=== PATIENT | female | born 1965 | race Caucasian/White ===

== ENCOUNTER 2019-10-16 12:11 | Emergency (ER) | payer OTHER ==
[2019-10-16] MEDS ORDERED: Ondansetron PF 4 MG/2 ML Vial ONE ×2 (12:40→13:32)
[2019-10-16 12:46] LABS: Hemoglobin 15.1 g/dL (12.0-16.0); Mean Corpuscular HGB CONC 35.3 g/dL (32.0-36.0); Mean Corpuscular Hemoglobin 33.6 pg (27.0-31.0); Mean Corpuscular Volume 95.3 fL (78.0-98.0); Mean Platelet Volume 8.4 fL (7.4-10.4); Platelet Count 252 thou/uL (130-400); RBC Distribution Width 11.5 % (11.5-14.5); Red Blood Cell (RBC) Count 4.48 mill/uL (4.20-5.40); White Blood Cell (WBC) Count 12.7 thou/uL (4.8-10.8)
[2019-10-16 13:00] LABS: ALT (SGPT) 16 U/L (8-55); AST (SGOT) 28 U/L (5-34); Albumin 4.7 g/dL (3.5-5.0); Alkaline Phosphatase 64 U/L (40-110); Anion Gap 18 mmol/L (10-20); BUN (Urea Nitrogen) 13 mg/dL (9.8-20.1); Bilirubin, Total 0.8 mg/dL (0.2-1.2); Calc. Creatinine Clearance 0 mL/min (70-130); Calcium 9.2 mg/dL (7.8-10.44); Carbon Dioxide 21 mmol/L (22-29); Chloride 102 mmol/L (98-107); Estimated GFR-MDRD 70; Globulin 2.9 g/dL (2.4-3.5); Glucose 126 mg/dL (70-105); Lipase 27 U/L (8-78); Potassium 4.9 mmol/L (3.5-5.1); Protein, Total 7.6 g/dL (6.0-8.3); Sodium 136 mmol/L (136-145)
[2019-10-16 13:14] LABS: Band 30 % (5-11); Lymphocytes 6 % (21-51); MDiff Complete? YES; Monocytes 2 % (0-10); Neutrophil 61 % (42-75); Platelet Morphology Comment Appears Adequate; Polychromasia SLIGHT = 2-3 cells (100X) (0-2/hpf); Reactive Lymphocytes 1 % (0-10)
--- NOTE | 2019-10-16 13:23 | ULT ---
Exam: Right upper quadrant ultrasound: HISTORY: Abdominal pain with nausea and vomiting. COMPARISON: None FINDINGS: Liver: Within normal limits Gallbladder: There are 2 small nonmobile echogenic foci seen along the gallbladder wall largest measu ring approximately 4 mm likely due to small gallbladder polyps. No gallbladder calculus is seen. No gallbladder wall thickening or pericholecystic fluid is identified. Common bile duct: The common duct is normal in caliber measuring 0.3 cm in diameter. Pancreas: Limited visualized portions of the pancreas demonstrate a normal sonographic appearance. Right kidney: Right kidney demonstrates a normal sonographic appearance. The right kidney measures 1 0 cm in length. IVC: The visualized IVC demonstrates a normal sonographic appearance. IMPRESSION: 1. Findings likely attributable to 2 small gallbladder polyps largest measuring 4 mm. 2. No gallbladder calculus is seen, and the common duct is normal in caliber.
[2019-10-16 13:27] LABS: Troponin I Less than 0.010 ng/mL (< 0.028)
[2019-10-16] MEDS ORDERED: Fentanyl 100 MCG/2 ML VIAL ONE (13:32)
[2019-10-16] MEDS ORDERED: Iopamidol 370 76% 100 ML VIAL ONE (13:43)
[2019-10-16 14:18] LABS: Bilirubin Negative (Negative); Blood, Urine Negative (Negative); Clarity Clear (Clear); Glucose, Urine (Dipstick) Normal (Negative); Leukocyte Negative Leu/uL (Negative); Nitrite Negative (Negative); Protein, Urine (Dipstick) Negative (Neg-Trace); Urobilinogen Normal mg/dL (Less than 2)
--- NOTE | 2019-10-16 14:27 | CT ---
CT ABDOMEN AND PELVIS WITH CONTRAST: COMPARISON: None. HISTORY: Severe abdominal pain. TECHNIQUE: Multiple contiguous axial images were obtained in a CT of the abdomen and pelvis with contrast. Sagi ttal and coronal reformats were performed. FINDINGS: The liver, gallbladder, kidneys, adrenal glands, spleen, and pancreas are unremarkable.. No free air , free fluid, or stranding changes are seen in the abdomen or pelvis. The uterus has been removed. There is a tubular low-density structure in the right aspect of the pel vis which could represent a slightly enlarged residual right fallopian tube versus a loop of predomin antly decompressed small bowel containing fluid. The large and small bowel are unremarkable. The ap pendix is not definitely seen. No abdominal or pelvic lymphadenopathy are seen. The osseous structures, visualized inferior thorax, and abdominal wall soft tissues are unremarkable. IMPRESSION: No evidence of acute intraabdominal/pelvic abnormality. POS: [facility]
[2019-10-16] MEDS ORDERED: Ketorolac Tromethamine 30 MG/ML VIAL ONE (14:48)
== END 2019-10-16 15:21 | disposition home or self-care (01) ==
LOC: ERS 12:11
DX: R10.13 Epigastric pain (principal); R10.11 Right upper quadrant pain; R11.2 Nausea with vomiting, unspecified; R19.7 Diarrhea, unspecified
CPT/HCPCS: 74177; 76705; 80053; 81003; 83690; 84484; 85025; 93005; 96361; 96372; 96374; 96375; 96376; J0500; J1885; J2405; J3010; Q9967

== ENCOUNTER 2019-10-17 03:55 | Emergency (ER) | payer OTHER ==
[2019-10-17] MEDS ORDERED: Promethazine HCl 25 MG/ML VIAL ONE (04:11)
[2019-10-17] MEDS ORDERED: Sucralfate 1 GM TAB PO SCH (04:45)
[2019-10-17] MEDS ORDERED: Sucralfate 1 GM/10 ML UDCUP ONE (04:51)
== END 2019-10-17 05:50 | disposition home or self-care (01) ==
LOC: ERS 03:55
DX: R10.13 Epigastric pain (principal); R11.2 Nausea with vomiting, unspecified
CPT/HCPCS: 96372; 99283; J2550

== ENCOUNTER 2019-10-31 09:11 | Inpatient (IN) | payer OTHER ==
[2019-10-31] MEDS ORDERED: Morphine 4 MG/ML VIAL ONE ×2 (09:25→10:26)
[2019-10-31] MEDS ORDERED: Ondansetron PF 4 MG/2 ML Vial ONE ×2 (09:26→09:41)
[2019-10-31 09:34] LABS: #Basophils 0.1 thou/uL (0.0-0.2); #Eosinphils 0.1 thou/uL (0.0-0.7); #Lymphocytes 1.3 thou/uL (1.20-3.40); #Monocytes 0.5 thou/uL (0.11-0.59); #Neutrophils 12.6 thou/uL (1.40-6.50); %Basophils 0.7 % (0.0-1.0); %Eosinophils 0.4 % (0.0-10.0); %Lymphocytes 9.1 % (21.0-51.0); %Monocytes 3.6 % (0.0-10.0); %Neutrophils 86.3 % (42.0-75.0); Hemoglobin 16.9 g/dL (12.0-16.0); Mean Corpuscular HGB CONC 34.1 g/dL (32.0-36.0); Mean Corpuscular Hemoglobin 32.8 pg (27.0-31.0); Mean Corpuscular Volume 96.2 fL (78.0-98.0); Mean Platelet Volume 6.6 fL (7.4-10.4); Platelet Count 505 thou/uL (130-400); RBC Distribution Width 11.2 % (11.5-14.5); Red Blood Cell (RBC) Count 5.14 mill/uL (4.20-5.40); White Blood Cell (WBC) Count 14.6 thou/uL (4.8-10.8)
[2019-10-31 09:47] LABS: ALT (SGPT) 31 U/L (8-55); AST (SGOT) 19 U/L (5-34); Albumin 4.4 g/dL (3.5-5.0); Alkaline Phosphatase 88 U/L (40-110); Anion Gap 16 mmol/L (10-20); BUN (Urea Nitrogen) 6 mg/dL (9.8-20.1); Bilirubin, Total 0.3 mg/dL (0.2-1.2); Calc. Creatinine Clearance 0 mL/min (70-130); Calcium 9.9 mg/dL (7.8-10.44); Carbon Dioxide 29 mmol/L (22-29); Chloride 100 mmol/L (98-107); Estimated GFR-MDRD 79; Globulin 3.5 g/dL (2.4-3.5); Glucose 119 mg/dL (70-105); Lipase 40 U/L (8-78); Potassium 4.7 mmol/L (3.5-5.1); Protein, Total 7.9 g/dL (6.0-8.3); Sodium 140 mmol/L (136-145)
--- NOTE | 2019-10-31 10:15 | RAD ---
Portable frontal chest radiograph: 10/31/2019 COMPARISON: None HISTORY: Right upper quadrant pain FINDINGS: No focal consolidation or alveolar edema. Heart and mediastinal contours appear within norm al limits. No pneumothorax or pleural fluid. Mild increased linear density in the medial right lung base suggests probable vascular structures. Impression: No focal consolidation or alveolar edema.
[2019-10-31] MEDS ORDERED: Promethazine HCl 25 MG/ML VIAL ONE (10:26)
--- NOTE | 2019-10-31 10:49 | ULT ---
Right upper quadrant ultrasound: 10/31/2019 COMPARISON: None HISTORY: Right upper quadrant pain TECHNIQUE: Multiplanar grayscale sonographic imaging of the right upper quadrant. FINDINGS: Partially imaged pancreas appears unremarkable. No focal liver lesion or intrahepatic bilia ry dilatation. The personal development coach reports a negative Richards's sign. No gallbladder wall thickening or pericholecystic f luid. No gallstones are noted. The common bile duct is normal in size, measuring 2 mm. Incidental note is made of subcentimeter gallbladder polyps measuring up to 6 mm. Right kidney measures 9 cm in craniocaudal dimension and demonstrates no hydronephrosis, stone, or ma ss. IMPRESSION: Unremarkable right upper quadrant ultrasound.
[2019-10-31] MEDS ORDERED: GoLYTELY 4,000 ml Bottle PO SCH (13:00)
[2019-10-31 13:06] LABS: Clarity Turbid (Clear); Leukocyte Negative Leu/uL (Negative); Nitrite Negative (Negative); Protein, Urine (Dipstick) Negative (Neg-Trace)
[2019-10-31 13:07] LABS: Bacteria/HPF 1+ HPF (None Seen); Bilirubin Negative (Negative); Blood, Urine Negative (Negative); Calcium Oxalate Crystals 3+ HPF (None Seen); Glucose, Urine (Dipstick) Normal (Negative); RBC/HPF 21-50 HPF (0-3); Squamous Epithelial 0-3 HPF (0-3); Urobilinogen Normal mg/dL (Less than 2)
--- NOTE | 2019-10-31 13:11 | PDOC.FPRHP ---
- History of Present Illness Chief Complaint: abdominal pain History of Present Illness: 54yo F previously healthy presents with 16 day hx of severe abdominal pain with associated nause/vomiting/diarrhea. Pain is achy and epigastric and severe with no radiation. It is palliated by light pressure and laying in position. No hematemesis/melena/hematochezia. She was hospitalized earlier this week at [facility] and had extensive workup done then (including stool studies and imaging) just short of endoscopy. CT reportedly showed diffuse enteritis. ED Course: phenergan, zofran, morphine 8mg, 2L NS - Allergies/Adverse Reactions Allergies Allergy/AdvReac Type Severity Reaction Status Date / Time No Known Allergies Allergy Unverified 10/31/19 13:31 - Home Medications Medication Instructions Recorded Confirmed Type Ibuprofen [Motrin] 600 mg PO Q8H PRN #60 tab 11/07/19 Rx - History PMHx: exercise induced bronchospasm PSHx: hysterectomy, neck lift, L breast fibroid and L breast lift. FHx: No fam hx of colon cancer, non contributory Social: social EtOH, denies tobacco/drugs - Review of Systems General: denies: fever/chills, fatigue Eyes: denies: eye pain, vision changes ENT: denies: nasal congestion, rhinorrhea Respiratory: denies: cough, congestion, shortness of breath Cardiovascular: denies: chest pain, palpitation Gastrointestinal: reports: nausea, vomiting, diarrhea, abdominal pain. denies: constipation, GI bleeding Skin: denies: rashes, lesions Musculoskeletal: denies: pain, tenderness Neurological: denies: syncope, seizure Psychological: denies: anxiety, depression - Vital signs BP: 149/111, Pulse: 131, Temp: 97.8 (Oral), Pain: 8, O2 sat: 98 on (Room Air), Time: 10/31/2019 09:12. resp 15 weight 56kg - Physical Exam Constitutional: awake, alert and oriented -Constitutional: mild distress HEENT: EOMI, grossly normal vision, grossly normal hearing Neck: supple, trachea midline Chest: no-tender to palpation Heart: RRR, normal S1/S2 Lungs: CTAB, no respiratory distress, good air movement Abdomen: soft, other (epigastric tenderness. neg tan/mcburney/rovsing/heel tap) Musculoskeletal: normal structure, normal tone Neurological: no focal deficit, normal sensation Skin: no rash/lesions, good turgor Heme/Lymphatic: no unusual bruising or bleeding, no purpura FMR H&P: Results - Labs Result Diagrams: 11/07/19 11:59 11/06/19 05:40 Lab results: WBC 14.6 thou/uL (4.8-10.8) H 10/31/19 09:24 Hgb 16.9 g/dL (12.0-16.0) H 10/31/19 09:24 Hct 49.5 % (36.0-47.0) H 10/31/19 09:24 MCV 96.2 fL (78.0-98.0) 10/31/19 09:24 Plt Count 505 thou/uL (130-400) H 10/31/19 09:24 Neutrophils % 86.3 % (42.0-75.0) H 10/31/19 09:24 Sodium 140 mmol/L (136-145) 10/31/19 09:24 Potassium 4.7 mmol/L (3.5-5.1) 10/31/19 09:24 Chloride 100 mmol/L (98-107) 10/31/19 09:24 Carbon Dioxide 29 mmol/L (22-29) 10/31/19 09:24 BUN 6 mg/dL (9.8-20.1) L 10/31/19 09:24 Creatinine 0.76 mg/dL (0.6-1.1) 10/31/19 09:24 Glucose 119 mg/dL (70-105) H 10/31/19 09:24 Lactic Acid 1.4 mmol/L (0.5-2.2) 10/31/19 10:16 Calcium 9.9 mg/dL (7.8-10.44) 10/31/19 09:24 Total Bilirubin 0.3 mg/dL (0.2-1.2) 10/31/19 09:24 AST 19 U/L (5-34) 10/31/19 09:24 ALT 31 U/L (8-55) 10/31/19 09:24 Alkaline Phosphatase 88 U/L (40-110) 10/31/19 09:24 Serum Total Protein 7.9 g/dL (6.0-8.3) 10/31/19 09:24 Albumin 4.4 g/dL (3.5-5.0) 10/31/19 09:24 Lipase 40 U/L (8-78) 10/31/19 09:24 FMR H&P: A/P - Problem List (1) Intractable abdominal pain Status: Acute Code(s): R10.9 - UNSPECIFIED ABDOMINAL PAIN (2) Hypovolemia Status: Acute Code(s): E86.1 - HYPOVOLEMIA - Plan Intractible abdominal pain A- unclear etiology at this time. extensive workup outpt and outside hospital unremarkable. CT previously suggest diffuse enteritis, RUQ US here shows gall bladder polpys. GI consulted from ED (recs appreciated) P- admit to medical obs -protonix BID -plan for possible endoscopy tomorrow -morphine prn for pain -consider HIDA scan in future -f/u GI recs COVID-19 r/o A- pt meets testing criteria for testing as she is admitted for diarrhea requiring hospitalization. low suspicion for infection P- Covid19 testing -droplet precautions -will hold off on additional "covid" labwork for the time being hypovolemia A- pt is s/p 2 L IVF in ER and appears euvolemic on exam now P- Will keep on mIVF until she has improved PO intake CODE: FULL IVF: LR 75/hr PPx: SCDs (hold lovenox for possible scope), protonix PCP: Dr. Catalan FMR H&P: Upper Level - Plan Date/Time: 10/31/19 1210 I, [], have evaluated this patient and agree with findings/plan as outlined by recruiting internship resident. Pertinent changes/additions are listed here. Addendum - Attending - Attending Attestation Date/Time: 11/22/19 1310 I personally evaluated the patient and discussed the management with Dr. Perez on 10/31/19. I agree with the History, Examination, Assessment and Plan documented above with any addition or exceptions noted below. 54 y.o. F with h/o Hyst with 16 days N/V/D/epigastric pain. Prior w/u suggested nonspecific enteritis. Symptoms are possible COVID so made PUI. Continue IVF resuscitation, limit p.o. intake. Abx's and GI consultation.
--- NOTE | 2019-10-31 13:33 | CON ---
DATE OF CONSULTATION: 10/31/2019 REASON FOR CONSULTATION: Ongoing abdominal pain, vomiting, enteritis on recent CT. HISTORY OF PRESENT ILLNESS: Veronika Roberts is a 54-year-old woman, whom I met a week and a half ago in hospital consultation at the [facility]. See my consult note from 10/21/2019, for further details. Briefly, she has no significant past medical history. No chronic gastrointestinal symptoms until recently. She has never undergone colonoscopy. Her grandmother had colon cancer in her 90s. Ms. Roberts was doing well until the last week of September when she had a fairly acute onset of loss of appetite and nausea. She started having multiple episodes of bilious emesis and severe epigastric pain. Over the next few days, the vomiting persisted, and she started having more generalized abdominal pain and then pain into the bilateral lower quadrants. The vomiting improved, but then she started having watery diarrhea for several days and was having bowel movements every 10 minutes or so. There was no blood in the stool or in the emesis. She was admitted to the hospital, where I evaluated her. She was hyponatremic with sodium down to 128. A CT of the abdomen and pelvis demonstrated diffuse small bowel enteritis as well as some diffuse colon thickening, inflammation, particularly severe in the area of the ileum. The CT was otherwise negative. She was started on Levaquin and Flagyl empirically. Stool studies were sent and were all negative including C. difficile, Campylobacter antigen, and Shiga toxin. The patient reports she had further stool studies, both before and after that admission, which were all negative including O and P. By the time I saw her, she felt her diarrhea was improving and abdominal pain improving a little bit as well. My clinical impression at that time was that this likely represented an acute infectious gastroenteritis. She was able to be discharged the following day. She reports that over the past week and half since then, symptoms have not appreciably improved and now over the past couple of days have significantly worsened. She is still having significant pain, which is primarily in the epigastrium, but really generalized still. She had return of nausea yesterday and vomiting this morning. Her bowel movements have remained loose and frequent, about 5 or 6 times per day, still nonbloody. She has not had any fever or any cough with this. She has lost about 7 pounds over the past 3 weeks. She has felt drained of energy and has essentially been in bed for the past week trying to hold off the abdominal pain symptoms. Upon presentation here, chest x-ray and abdominal ultrasound are unremarkable. She does have a leukocytosis with WBC 14.6, hemoglobin 16.9, platelets 505, appearing hemoconcentrated, but LFTs and lactic acid are normal. REVIEW OF SYSTEMS: Full review of systems including constitutional, head, eyes, ears, nose, throat, GI, , cardiovascular, respiratory, musculoskeletal, and neurologic systems is negative except as noted in the HPI. PAST MEDICAL HISTORY: Nothing significant. ALLERGIES: NO KNOWN DRUG ALLERGIES. OUTPATIENT MEDICATIONS: 1. Probiotic. 2. Fish oil. SOCIAL HISTORY: Alcohol use is rare. No smoking or drug use. FAMILY HISTORY: Her grandmother had colon cancer, but it was in her 90s. There is no known family history of inflammatory bowel disease. PHYSICAL EXAMINATION: GENERAL: A 54-year-old woman, lying in bed, in mild distress from abdominal pain. MENTAL: She is alert and fully oriented. Pleasant and conversational. She can give details about her prior and recent history. SKIN: No jaundice. No rashes were palpable. EYES: No scleral icterus. Extraocular movements are intact. ENT: Mucous membranes are moist. No oral lesions. LYMPH: No submandibular or supraclavicular lymphadenopathy. Thyroid nontender to palpation. HEART: Regular rate and rhythm. LUNGS: Clear to auscultation bilaterally. ABDOMEN: Nondistended. Bowel sounds are present. She is quite tender to palpation in the epigastrium, but also in the periumbilical area. There is no guarding or rebound tenderness. EXTREMITIES: No peripheral edema. VESSELS: Radial pulses 2+ bilaterally. NEUROLOGIC: Cranial nerves 2 through 12 intact bilaterally. No focal deficits. LABORATORY STUDIES: WBC 14.6, hemoglobin 16.9, platelets 505. Sodium 140, potassium 4.7, BUN 6, creatinine 0.76, lactic acid 1.4, calcium 9.9, lipase 40. Troponin, negative. LFTs all normal with total bilirubin 0.3, alkaline phosphatase 88, AST 19, ALT 31, albumin 4.4. IMAGING STUDIES: Chest x-ray shows no focal consolidation or alveolar edema. Abdominal ultrasound is normal exam, normal appearing liver, normal common bile duct of 2 mm. There incidentally demonstrated some gallbladder polyps measuring up to [address] of the abdomen and pelvis from the outside facility on 10/20/2019, had demonstrated diffuse enterocolitis with thickening, particularly in the ileum, otherwise negative study. ASSESSMENT AND PLAN: 1. Generalized abdominal pain. 2. Chronic diarrhea, now for 3 weeks, with multiple negative stool studies for pathogens. 3. Nausea and vomiting, recurrent. 4. Enterocolitis, unknown etiology, demonstrated on recent CT scan on 10/20/2019. Her symptoms have now been persistent for the past 3 weeks now, more consistent with onset of a chronic diarrhea and abdominal pain. Especially given all the negative stool studies and the duration of symptoms, this makes an infectious gastroenteritis a bit less likely. It raises the concern for possible onset of inflammatory bowel disease, also need to consider other possibilities such as peptic ulcer disease. The next step in evaluation would be diagnostic esophagogastroduodenoscopy and colonoscopy. The patient is willing to try the bowel preparation this evening, so we will plan for that, plan for diagnostic esophagogastroduodenoscopy and colonoscopy tomorrow. That being the case, I would hold off on any empiric steroids for now. We would start her on Protonix 40 mg b.i.d. in the meantime. Otherwise, supportive care as per the primary service. Dr. Sher is covering for GI over the weekend. Please call back anytime with questions or concerns. Job ID: [id number]
[2019-10-31] MEDS ORDERED: Lactated Ringer's 1,000 ML IV SCH (14:25)
[2019-10-31] MEDS ORDERED: Acetaminophen 325 MG TAB PO PRN (14:25)
[2019-10-31] MEDS ORDERED: Acetaminophen 650 MG Suppository PR PRN (14:39)
[2019-10-31] MEDS ORDERED: Promethazine HCl 12.5 MG SUPP PR PRN (14:39)
[2019-10-31] MEDS ORDERED: Pantoprazole 40 MG VIAL IVP SCH (14:39)
[2019-10-31] MEDS ORDERED: Ondansetron ODT 4 MG TAB PO PRN (14:39)
[2019-10-31] MEDS: Lactated Ringer's 1,000 ML IV SCH (15:17)
[2019-10-31] MEDS: Ondansetron PF 4 MG/2 ML Vial IVP PRN (15:19)
[2019-10-31] MEDS: Morphine 4 MG/ML VIAL SLOW IVP PRN (15:20)
[2019-10-31] MEDS ORDERED: Ondansetron ODT 4 MG TAB SL PRN (15:40)
[2019-10-31] MEDS ORDERED: Ondansetron PF 4 MG/2 ML Vial IVP PRN (15:40)
[2019-10-31 17:23] VITALS: BMI 22.8
[2019-10-31] MEDS: Pantoprazole 40 MG VIAL IVP SCH (22:41)
[2019-11-01] MEDS: Lactated Ringer's 1,000 ML IV SCH ×3 (04:06→23:20)
[2019-11-01 06:30] LABS: #Basophils 0.1 thou/uL (0.0-0.2); #Eosinphils 0.2 thou/uL (0.0-0.7); #Lymphocytes 1.9 thou/uL (1.20-3.40); #Monocytes 0.6 thou/uL (0.11-0.59); #Neutrophils 3.7 thou/uL (1.40-6.50); %Basophils 0.8 % (0.0-1.0); %Eosinophils 2.5 % (0.0-10.0); %Lymphocytes 29.8 % (21.0-51.0); %Monocytes 8.8 % (0.0-10.0); %Neutrophils 58.1 % (42.0-75.0); Hemoglobin 13.7 g/dL (12.0-16.0); Mean Corpuscular HGB CONC 34.5 g/dL (32.0-36.0); Mean Corpuscular Hemoglobin 33.3 pg (27.0-31.0); Mean Corpuscular Volume 96.3 fL (78.0-98.0); Mean Platelet Volume 6.7 fL (7.4-10.4); Platelet Count 386 thou/uL (130-400); Red Blood Cell (RBC) Count 4.13 mill/uL (4.20-5.40); White Blood Cell (WBC) Count 6.4 thou/uL (4.8-10.8)
[2019-11-01 07:03] LABS: ALT (SGPT) 20 U/L (8-55); AST (SGOT) 16 U/L (5-34); Albumin 3.3 g/dL (3.5-5.0); Alkaline Phosphatase 63 U/L (40-110); Anion Gap 12 mmol/L (10-20); BUN (Urea Nitrogen) 4 mg/dL (9.8-20.1); Bilirubin, Total 0.5 mg/dL (0.2-1.2); Calc. Creatinine Clearance 89 mL/min (70-130); Calcium 8.6 mg/dL (7.8-10.44); Carbon Dioxide 28 mmol/L (22-29); Chloride 103 mmol/L (98-107); Estimated GFR-MDRD Greater than 90; Globulin 2.4 g/dL (2.4-3.5); Glucose 81 mg/dL (70-105); Potassium 3.6 mmol/L (3.5-5.1); Protein, Total 5.7 g/dL (6.0-8.3); Sodium 139 mmol/L (136-145)
[2019-11-01] MEDS ORDERED: PROPOFOL 0 ML ONE (07:22)
[2019-11-01] MEDS ORDERED: Ketamine 50 MG/ML (10ML VIAL) ONE (07:22)
[2019-11-01] MEDS: Pantoprazole 40 MG VIAL IVP SCH ×2 (08:46→20:40)
--- NOTE | 2019-11-01 09:47 | PDOC.FM ---
- Subjective Subjective: Pt feeling well, abd pain is controlled with morphine, no respiratory Sx. No new complaints - Objective Vital Signs & Weight: Vital Signs (12 hours) Temp Pulse Resp BP BP Pulse Ox 11/01/19 03:30 98.1 F 79 16 116/77 95 10/31/19 21:45 98.7 F 85 18 124/81 96 Weight Weight 56.699 kg I&O: 10/31/19 11/01/19 11/02/19 06:59 06:59 06:59 Intake Total 240 Balance 240 Result Diagrams: 11/07/19 11:59 11/06/19 05:40 Phys Exam - Physical Examination Constitutional: NAD HEENT: moist MMs, sclera anicteric Neck: no JVD, supple Respiratory: no wheezing, clear to auscultation bilateral Cardiovascular: RRR, no significant murmur Gastrointestinal: soft, no distention Musculoskeletal: no edema, pulses present Neurological: normal sensation, moves all 4 limbs Psychiatric: normal affect, A&O x 3 Skin: no rash, normal turgor Dx/Plan (1) Intractable abdominal pain Code(s): R10.9 - UNSPECIFIED ABDOMINAL PAIN Status: Acute (2) Hypovolemia Code(s): E86.1 - HYPOVOLEMIA Status: Acute - Plan Plan: Intractible abdominal pain A- unclear etiology at this time. extensive workup outpt and outside hospital unremarkable. CT previously suggest diffuse enteritis, RUQ US here shows gall bladder polpys. GI consulted from ED (recs appreciated) P- protonix BID -plan for endoscopy after testing negative for COVID -morphine prn for pain -consider HIDA scan in future -f/u GI recs COVID-19 r/o A- pt meets testing criteria for testing as she is admitted for diarrhea requiring hospitalization. low suspicion for infection P- Covid19 testing -droplet precautions -will hold off on additional "covid" labwork for the time being hypovolemia A- pt is s/p 2 L IVF in ER and appears euvolemic on exam now P- Will keep on mIVF until she has improved PO intake CODE: FULL IVF: LR 75/hr PPx: SCDs (hold lovenox for possible scope), protonix PCP: Dr. Catalan Addendum - Attending - Attending Attestation Date/Time: 11/22/19 5865 I personally evaluated the patient and discussed the management with Dr. Perez on 11/01/19. I agree with the History, Examination, Assessment and Plan documented above with any addition or exceptions noted below. Pt. pain controlled with meds. Afeb. continue current abx's with anticipated scopes when COVID testing back if negative.
[2019-11-01] MEDS: Morphine 4 MG/ML VIAL SLOW IVP PRN (20:39)
[2019-11-01] MEDS: Sodium Chloride 0.9% (PF) 10 ML VIAL FS PRN (20:40)
[2019-11-02] MEDS: Morphine 4 MG/ML VIAL SLOW IVP PRN ×2 (00:09→13:55)
--- NOTE | 2019-11-02 05:40 | PRG ---
DATE OF SERVICE: 11/01/2019 SUBJECTIVE: This is a 54-year-old female with abdominal pain, nausea, vomiting, and diarrhea. The patient has had negative stool studies, and abdominal CAT scan. During the hospital, she has recurrent diarrhea . However, she is doing much better today. She has had no stool since yesterday. Also having no more nausea or vomiting. Abdominal pain is over the epigastric area and mild. She appears very comfortable, in no distress. Her COVID study is pending at this time. OBJECTIVE: VITAL SIGNS: Afebrile, pulse is 72, blood pressure 136/83, HEENT: Conjunctivae are clear. CARDIOVASCULAR SYSTEM: First and second heart sounds are normal_. LUNGS: Clear to auscultation. ABDOMEN: Soft and nondistended. Abdomen is mildly tender over the epigastric area. Overall, the exam is very benign. CLINICAL IMPRESSION: Abdominal pain, nausea, vomiting, diarrhea. The patient has had multiple stool exam, which came back negative . She also has negative abdominal CAT scan. PLAN: Was to do an EGD and colonoscopy today, but because of the COVID study is pending, the procedure is on hold today. If the COVID comes negative , will plan for endoscopic studies. Job ID: [id number] MTDD
[2019-11-02 05:54] LABS: #Eosinphils 0.1 thou/uL (0.0-0.7); #Lymphocytes 1.8 thou/uL (1.20-3.40); #Monocytes 0.4 thou/uL (0.11-0.59); #Neutrophils 1.3 thou/uL (1.40-6.50); %Basophils 0.9 % (0.0-1.0); %Eosinophils 3.7 % (0.0-10.0); %Lymphocytes 49.1 % (21.0-51.0); %Neutrophils 35.4 % (42.0-75.0); Hemoglobin 13.2 g/dL (12.0-16.0); Mean Corpuscular HGB CONC 34.8 g/dL (32.0-36.0); Mean Corpuscular Hemoglobin 33.2 pg (27.0-31.0); Mean Corpuscular Volume 95.3 fL (78.0-98.0); Platelet Count 371 thou/uL (130-400); Red Blood Cell (RBC) Count 3.99 mill/uL (4.20-5.40); White Blood Cell (WBC) Count 3.7 thou/uL (4.8-10.8)
[2019-11-02 06:04] LABS: ALT (SGPT) 21 U/L (8-55); AST (SGOT) 22 U/L (5-34); Albumin 3.2 g/dL (3.5-5.0); Alkaline Phosphatase 62 U/L (40-110); Anion Gap 11 mmol/L (10-20); BUN (Urea Nitrogen) 4 mg/dL (9.8-20.1); Bilirubin, Total 0.4 mg/dL (0.2-1.2); Calc. Creatinine Clearance 93 mL/min (70-130); Calcium 8.7 mg/dL (7.8-10.44); Carbon Dioxide 27 mmol/L (22-29); Chloride 103 mmol/L (98-107); Estimated GFR-MDRD Greater than 90; Globulin 2.6 g/dL (2.4-3.5); Glucose 74 mg/dL (70-105); Potassium 3.4 mmol/L (3.5-5.1); Protein, Total 5.8 g/dL (6.0-8.3); Sodium 138 mmol/L (136-145)
[2019-11-02] MEDS ORDERED: Potassium Chloride 20 MEQ TAB PO SCH (07:15)
[2019-11-02] MEDS: Pantoprazole 40 MG VIAL IVP SCH ×2 (08:39→20:35)
--- NOTE | 2019-11-02 08:57 | PRG ---
DATE OF SERVICE: 11/02/2019 SUBJECTIVE: This 54-year-old female hospitalized 2 days ago with abdominal pain, nausea, vomiting, and diarrhea. Apparently, she had symptoms for nearly 2 weeks longer. Her workup has been negative including abdominal CAT scan, abdominal sonogram, stool studies. Since admission, she had done fairly well. Her abdominal pain is mild. No nausea, no vomiting. She had a couple of small stools yesterday, but no stool today. Overall, clinically she is doing much better. Not able to perform the EGD or colonoscopy because of pending COVID study. OBJECTIVE: GENERAL: Appears very comfortable. VITAL SIGNS: stable, afebrile, pulse is 84, and blood pressure is 120/78. HEENT: Conjunctivae are clear. CARDIOVASCULAR: First and second sounds are heard. LUNGS: Clear to auscultation. ABDOMEN: Soft. Abdomen is nondistended. Abdomen is mildly tender over the epigastric area. There is no rebound or guarding. LABORATORY DATA: Normal CBC. Chemistry panel again normal except for mild hypokalemia at 3.4, albumin 3.2. CLINICAL IMPRESSION: A 54-year-old female with abdominal pain, nausea, vomiting, diarrhea, which she is more than 2 weeks. The workup has been basically negative. The plan is for EGD and colonoscopy to be performed, but unfortunately, she has had some COVID study done, which is pending. RECOMMENDATIONS: 1. Continue present treatment. 2. If COVID study comes negative, plan for EGD and colonoscopy in the near future. Job ID: [id number]
--- NOTE | 2019-11-02 10:09 | PDOC.FM ---
- Subjective Subjective: pt had increased abdominal pain last night which was controlled with morphine. Currently feeling well, no respiratory Sx, no fever/chills, no new complaints - Objective Vital Signs & Weight: Vital Signs (12 hours) Temp Pulse Resp BP BP Pulse Ox 11/02/19 08:00 98.0 F 70 18 135/78 96 11/02/19 01:19 96 11/02/19 01:00 98.4 F 16 120/78 97 Weight Admit Weight 56.699 kg Weight 56.699 kg I&O: 11/01/19 11/02/19 11/03/19 06:59 06:59 06:59 Intake Total 240 3240 Balance 240 3240 Result Diagrams: 11/07/19 11:59 11/06/19 05:40 Phys Exam - Physical Examination Constitutional: NAD HEENT: moist MMs, sclera anicteric Neck: supple, full ROM Respiratory: no wheezing, clear to auscultation bilateral Cardiovascular: RRR, no significant murmur Gastrointestinal: soft, no distention Musculoskeletal: no edema, pulses present Neurological: normal sensation, moves all 4 limbs Psychiatric: normal affect, A&O x 3 Skin: no rash, normal turgor Dx/Plan (1) Intractable abdominal pain Code(s): R10.9 - UNSPECIFIED ABDOMINAL PAIN Status: Acute (2) Hypovolemia Code(s): E86.1 - HYPOVOLEMIA Status: Acute (3) Severe malnutrition Code(s): E43 - UNSPECIFIED SEVERE PROTEIN-CALORIE MALNUTRITION Status: Acute - Plan Plan: Intractible abdominal pain A- unclear etiology at this time. extensive workup outpt and outside hospital unremarkable. CT previously suggest diffuse enteritis, RUQ US here shows gall bladder polpys. GI consulted from ED (recs appreciated) P- protonix BID -plan for endoscopy after testing negative for COVID -morphine prn for pain -consider HIDA scan in future -f/u GI recs COVID-19 r/o A- pt meets testing criteria for testing as she is admitted for diarrhea requiring hospitalization. low suspicion for infection P- Covid19 testing -droplet precautions -will hold off on additional "covid" labwork for the time being Severe malnutrition A- severe considering weight loss and per dietary assesment P- ensure clear while on Clear liquid diet. Appreciate dietary recommendations/ assessment hypovolemia -resolved CODE: FULL IVF: LR 75/hr PPx: SCDs (hold lovenox for possible scope), protonix PCP: Dr. Catalan Addendum - Attending - Attending Attestation Date/Time: 11/23/192024 I personally evaluated the patient and discussed the management with Dr. Perez on 11/02/19. I agree with the History, Examination, Assessment and Plan documented above with any addition or exceptions noted below. COVID negative. For Scopes tomorrow.
[2019-11-02] MEDS ORDERED: GoLYTELY 4,000 ml Bottle PO SCH (13:30)
[2019-11-02] MEDS: Ondansetron PF 4 MG/2 ML Vial IVP PRN (14:05)
[2019-11-03] MEDS: Lactated Ringer's 1,000 ML IV SCH ×3 (03:10→20:37)
[2019-11-03 05:38] LABS: #Basophils 0.1 thou/uL (0.0-0.2); #Eosinphils 0.1 thou/uL (0.0-0.7); #Lymphocytes 1.8 thou/uL (1.20-3.40); #Monocytes 0.4 thou/uL (0.11-0.59); #Neutrophils 1.8 thou/uL (1.40-6.50); %Basophils 1.8 % (0.0-1.0); %Eosinophils 3.3 % (0.0-10.0); %Lymphocytes 41.8 % (21.0-51.0); %Monocytes 10.4 % (0.0-10.0); %Neutrophils 42.7 % (42.0-75.0); Hemoglobin 13.8 g/dL (12.0-16.0); Mean Corpuscular HGB CONC 34.6 g/dL (32.0-36.0); Mean Corpuscular Hemoglobin 33.1 pg (27.0-31.0); Mean Corpuscular Volume 95.6 fL (78.0-98.0); Mean Platelet Volume 6.6 fL (7.4-10.4); Platelet Count 409 thou/uL (130-400); Red Blood Cell (RBC) Count 4.16 mill/uL (4.20-5.40); White Blood Cell (WBC) Count 4.3 thou/uL (4.8-10.8)
[2019-11-03 06:04] LABS: ALT (SGPT) 23 U/L (8-55); AST (SGOT) 20 U/L (5-34); Albumin 3.5 g/dL (3.5-5.0); Alkaline Phosphatase 63 U/L (40-110); Anion Gap 13 mmol/L (10-20); BUN (Urea Nitrogen) 5 mg/dL (9.8-20.1); Bilirubin, Total 0.5 mg/dL (0.2-1.2); Calc. Creatinine Clearance 82 mL/min (70-130); Carbon Dioxide 26 mmol/L (22-29); Chloride 101 mmol/L (98-107); Estimated GFR-MDRD 88; Globulin 2.7 g/dL (2.4-3.5); Glucose 71 mg/dL (70-105); Potassium 4.2 mmol/L (3.5-5.1); Protein, Total 6.2 g/dL (6.0-8.3); Sodium 136 mmol/L (136-145)
--- NOTE | 2019-11-03 06:44 | PDOC.FM ---
- Subjective Subjective: NAEO. Patient resting comfortably in bed. Patient states that she is not in pain this morning. She has not had anything to eat, therefore she has not had much pain per patient. She did get a dose of morphine earlier due to pain. Patient states that she talked with GI yesterday and the plan is to do EGD/ Colonoscopy today. She denies anymore NVD, chest pain, palpitations, SOB, cough. - Objective MAR Reviewed: Yes Vital Signs & Weight: Vital Signs (12 hours) Temp Pulse Resp BP Pulse Ox 11/03/19 05:00 97.7 F 86 16 109/69 97 11/03/19 02:54 97 11/02/19 19:35 98.3 F 73 16 130/84 97 Weight Admit Weight 56.699 kg Weight 56.699 kg I&O: 11/01/19 11/02/19 11/03/19 06:59 06:59 06:59 Intake Total 240 3240 3680 Balance 240 3240 3680 Result Diagrams: 11/03/19 05:28 11/03/19 05:28 Phys Exam - Physical Examination Constitutional: NAD HEENT: PERRLA, moist MMs, sclera anicteric Neck: supple, full ROM Respiratory: clear to auscultation bilateral Cardiovascular: RRR, no significant murmur, no rub Gastrointestinal: soft, no distention, positive bowel sounds mild TTP in midepigastrum Musculoskeletal: no edema Neurological: non-focal Psychiatric: normal affect Skin: no rash, normal turgor, cap refill <2 seconds Dx/Plan (1) Hypovolemia Code(s): E86.1 - HYPOVOLEMIA Status: Acute (2) Intractable abdominal pain Code(s): R10.9 - UNSPECIFIED ABDOMINAL PAIN Status: Acute (3) Severe malnutrition Code(s): E43 - UNSPECIFIED SEVERE PROTEIN-CALORIE MALNUTRITION Status: Acute - Plan Plan: Intractible abdominal pain Unclear etiology at this time. extensive workup outpt and outside hospital unremarkable. CT previously suggest diffuse enteritis, RUQ US here shows gall bladder polpys. - GI consulted from ED, appreciate recommendations. Plan for EGD/colonoscopy today. - Protonix BID - Morphine PRN for pain - Consider HIDA scan in future COVID-19 r/o Pt meets testing criteria for testing as she is admitted for diarrhea requiring hospitalization. - COVID negative Severe malnutrition - Overhead Distribution Engineer consult - severe. Ensure clear while on Clear liquid diet. Appreciate dietary recommendations/assessment Hypovolemia - Resolved CODE: FULL PPx: SCDs (hold lovenox for possible scope), protonix PCP: Dr. Catalan Case discussed with Dr. Dyer Addendum - Attending - Attending Attestation Date/Time: 11/03/19 1112 I personally evaluated the patient and discussed the management with Dr. Santacruz. I agree with the History, Examination, Assessment and Plan documented above with any addition or exceptions noted below. Patient having endoscopic evaluation today. Further mgmt pending that result. Bentyl trial for her pain complaint.
[2019-11-03] MEDS ORDERED: Ondansetron HCl/PF 4 MG/2 ML Vial IVP PRN (10:39)
[2019-11-03] MEDS ORDERED: Promethazine HCl 25 MG/ML VIAL SLOW IVP PRN (10:39)
[2019-11-03] MEDS ORDERED: Promethazine HCl 25 MG/ML VIAL IM PRN (10:39)
[2019-11-03] MEDS: Pantoprazole 40 MG VIAL IVP SCH ×2 (11:30→20:33)
[2019-11-03] MEDS: Sodium Chloride 0.9% (PF) 10 ML VIAL FS PRN ×2 (11:33→20:33)
--- NOTE | 2019-11-03 11:44 | OP ---
DATE OF PROCEDURE: 11/03/2019 PROCEDURES PERFORMED: 1. Esophagogastroduodenoscopy with biopsy. 2. Colonoscopy with biopsy and polypectomy. 3. Submucosal injection. INDICATION FOR PROCEDURE: Nausea, vomiting, abnormal imaging of the GI tract (CT showing diffuse small bowel enteritis and diffuse colon thickening, inflammation in the area of the ileum), diarrhea. DESCRIPTION OF PROCEDURES: After the risks and benefits of the procedures were explained to the patient including risks of bleeding, infection, perforation, reactions to anesthesia, aspiration, and/or pain, informed consent was obtained. The patient was then taken to the endoscopy suite where she was maneuvered into the left lateral decubitus position followed by deep sedation via propofol and anesthesia support. Once adequate sedation was achieved, a standard gastroscope was introduced into the mouth with intubation of the esophagus, stomach, and the proximal small intestines with the findings listed below. Upon conclusion of this portion of the procedure, all equipment was removed from the patient and the bed was rotated 180 degrees in anticipation of the colonoscopy. After a digital rectal examination was performed, a standard colonoscope was introduced into the rectum and advanced to the terminal ileum with some difficulty due to angulation and diverticulosis of the sigmoid colon that required reduction of the colonoscope. The quality of the prep was fair with a [id number] amount of retained liquid and solid stools seen throughout the colon, impeding visualization, but adequate for the evaluation of lesions greater than 5 mm in size. The patient tolerated the procedures well with no immediate perioperative complications. Upon conclusion of the procedure, all equipment was removed from the patient and she was transferred to PACU in satisfactory condition. EGD FINDINGS: Esophagus: Normal-appearing mucosa was seen in the proximal, mid, and distal esophagus. There was no evidence of erosions, ulcerations, mass lesions, or active/recent bleeding. Stomach: Normal-appearing mucosa was seen in the gastric cardia, fundus, body, greater curvature, antrum, and incisura. There was no evidence of erosions, ulcerations, mass lesions, or active/recent bleeding. Duodenum: Normal-appearing mucosa was seen in both the duodenal bulb and second portion of the duodenum. There was no evidence of erosions, ulcerations, mass lesions, or active/recent bleeding. Multiple random biopsies were taken from both the duodenal bulb and second portion of the duodenum for evaluation of possible celiac sprue. EGD IMPRESSION: 1. Normal upper endoscopy. 2. No etiology for the patient's symptoms seen during this portion of the examination. COLONOSCOPY FINDINGS: Digital rectal exam: Small external hemorrhoids were seen on external examination. Colon findings: Mild mucosal irregularity was seen in the terminal ileum more towards the distal end of the ileum near the ileocecal valve. There was no associated increased erythema or ulceration noted with this mucosal irregularity. Multiple biopsies were taken for further evaluation. The ileocecal valve appeared normal; however, there was significant prominence of the appendiceal orifice with increased mucosal erythema and swelling within the appendiceal orifice itself. There was no evidence of active purulence, but did have a white stripe emanating from the orifice itself. Multiple biopsies were taken from the appendiceal orifice for further evaluation. A 1 to 2 mm polyp was then seen in the cecum and completely removed with biopsy forceps. It was placed in a specimen jar for further evaluation. Otherwise, normal-appearing mucosa was seen in the cecum and the proximal ascending colon; however, at 75 cm past the anal verge, a 2.5 to 3 cm flat polyp or polypoid lesion was seen in the mid ascending colon that extended between more than one fold and was not amenable to endoscopic resection. Multiple biopsies were then taken of this flat polyp and placed in a specimen jar for further evaluation. Tattoo x4 (2 in the proximal end and 2 in the distal end of the lesion) were placed for further reference for surgical resection. Otherwise, normal-appearing mucosa was then seen in the distal ascending, transverse, and descending colon. Scattered small diverticula were seen in the sigmoid colon without any evidence of diverticulitis. A 4 to 5 mm polyp was also seen in the sigmoid colon and completely removed with snare cautery polypectomy. It was retrieved and placed in a specimen jar for further evaluation. Normal-appearing mucosa was then seen in the rectum. Random colonic biopsies were taken throughout the entire colon including the cecum, ascending, transverse, descending, and sigmoid colon and rectum. Small internal hemorrhoids were seen on rectal retroflexion. COLONOSCOPY IMPRESSION: 1. Mild mucosal irregularity of the distal terminal ileum of indeterminate clinical significance status post biopsies. 2. 1 to 2 mm cecal polyp status post complete removal with biopsy forceps. 3. A 2.5 to 3 cm flat polyp seen in the mid ascending colon status post biopsies and tattoo placement. 4. Increased prominence and swelling associated with appendiceal orifice along with increased mucosal erythema, concerning for an inflammatory process/appendicitis, status post biopsies. 5. [id number] sigmoid colon diverticulosis. 6. A 4 to 5 mm sigmoid colon polyp status post snare cautery polypectomy. 7. Small internal and external hemorrhoids. RECOMMENDATIONS: 1. We will follow up on the biopsy results with further management guided by the pathology report. 2. I would like to confer with the radiology service for evaluation of the appendix in this patient and the possibility of appendicitis. 3. Would consult General Surgery as either inpatient or outpatient basis for surgical resection of the large mid ascending colon polyp after biopsy results are known. 4. Would recommend a higher fiber diet given the presence of hemorrhoids and diverticulosis. 5. Pain control per primary team. 6. Agree with current antiemetic therapy. We will continue to follow. Please call with any questions. Job ID: [id number]
[2019-11-03] MEDS ORDERED: Iopamidol 370 76% 100 ML VIAL ONE (11:52)
[2019-11-03] MEDS ORDERED: Lidocaine 1% PF 5 ML VIAL ONE (12:06)
[2019-11-03] MEDS ORDERED: PROPOFOL 200 MG/20 ML VIAL ONE (12:06)
[2019-11-03] MEDS: Morphine 4 MG/ML VIAL SLOW IVP PRN ×2 (12:31→22:14)
[2019-11-03] MEDS: Dicyclomine 20 MG TAB PO SCH ×4 (12:36→22:17)
--- NOTE | 2019-11-03 15:49 | CT ---
CT ABDOMEN WITH CONTRAST CT PELVIS WITH CONTRAST: DATE: 11/03/2019 HISTORY: 54-year-old female follow-up abdominal pain, nausea, vomiting, and diarrhea. Rule out appendicitis. Dr. Simms discussed the ruptured appendicitis and periappendiceal abscess by telephone with nurse Paige Curtis at 3:44 PM 11/03/2019. Dr. Solorzano's office has been called, and they are trying to get ahold of him. Le, radiology medical insurance collector, has left a message on his voicemail, requesting return call. TECHNIQUE: IV injection of iodinated contrast media: administered. Oral contrast media:Administered FINDINGS: A normal appendix is not identified. Instead, there is a horseshoe shaped fluid collection with enhan cing chandra, within the right side of the pelvic cavity at the pelvic inlet, located posterior and slightly inferior to the cecum. This organized fluid collection has enhancing chandra. Its dimensions a re approximately 3.5 x 2 cm. There is surrounding fat stranding consistent with edema surrounding this and throughout much of the pelvic cavity. Oral contrast material has reached the transverse colon. The urinary bladder, abdominal aorta, kidneys, pancreas, adrenals, liver, and spleen, are normal. Caridad g bases are clear. No pneumoperitoneum or small bowel dilation. IMPRESSION: Evidence for ruptured appendicitis, with small periappendiceal abscess, which is not amenable to perc utaneous drainage.
[2019-11-03] MEDS: Piperacillin/Tazobactam 3.375 GM in Sodium Chloride 0.9% 100 ML IVPB SCH ×2 (17:12→23:30)
[2019-11-03] MEDS ORDERED: Lactated Ringer's 1,000 ML IV SCH (21:06)
--- NOTE | 2019-11-04 00:24 | CON ---
DATE OF CONSULTATION: 11/03/2019 CONSULTING PHYSICIAN: Zan Solorzano MD REASON FOR CONSULTATION: Suspected perforated appendicitis, right colon polyp. HISTORY OF PRESENT ILLNESS: The patient is a 54-year-old otherwise healthy white female. About 2 weeks ago, she began having symptoms, for which she was hospitalized at the [facility]. She had a CT scan at that time, which appeared to indicate findings consistent with diffuse enteritis. She was treated with oral antibiotics and eventually discharged home. She has had a variety of symptoms both while she was hospitalized and subsequently that have included severe abdominal pain both diffusely and focally in the epigastrium radiating to the back and the lower abdomen. She has had diarrhea. She has had weight loss. When she had persistence of symptoms, she re-presented to this hospital and was admitted on October 30 (3 days ago). In light of her persistent diarrhea and symptoms, it was decided to proceed with endoscopy. It is noted that her white blood cell count was elevated at the time of admission at 14.6, but at that time she appeared to have been somewhat volume contracted with a hemoglobin of 16.9. By the following day, on October 31, her white blood cell count was 6.4 and her hemoglobin was down to 13.7. She has had a normal differential since that time as well. Her BUN and creatinine were never elevated. She has mild hypoalbuminemia. She underwent upper and lower GI endoscopy today by Dr. Solorzano. The upper endoscopy was unremarkable. The lower endoscopy revealed findings of inflammation at the appendiceal base. Subsequent CT scan was obtained, which appeared to reveal a perforated appendicitis and appendiceal abscess. The abscess was a little over 3 cm in diameter and was not amenable to a percutaneous drainage. At the same colonoscopy, she was recognized to have a 3 cm flat colonoscopically unresectable polyp within the right colon. I am consulted regarding these findings. PAST MEDICAL HISTORY: She denies any prior medical problems. PAST SURGICAL HISTORY: She had a hysterectomy as well as a neck lift last year and a breast augmentation several years previously. CURRENT MEDICATIONS: None. ALLERGIES: NO KNOWN DRUG ALLERGIES. PERSONAL AND SOCIAL HISTORY: She is with children. She lives in [place], [place]. She does not smoke. She drinks alcohol occasionally. She denies illegal drug use. REVIEW OF SYSTEMS: Otherwise unremarkable. FAMILY HISTORY: Noncontributory. PHYSICAL EXAMINATION: VITAL SIGNS: Her temperature is 98.5. She has not been febrile during this hospitalization. Her pulse is 82. Her highest heart rate was at the time of admission when she was 94. Blood pressure is within normal limits at 121/77. GENERAL: She is a well-developed, well-nourished, pleasant white female, in no acute distress. She is alert and oriented x3 and does not appear to be in any significant pain. HEAD, EYES, EARS, NOSE, AND THROAT: Unremarkable. NECK: Supple without mass or tenderness. LUNGS: Clear to auscultation throughout. CARDIAC: Regular rate and rhythm without murmur. ABDOMEN: Soft with normoactive bowel sounds. She has a well-healed lower midline abdominal incision. She has some tenderness in the right lower quadrant that is not palpable elsewhere, but there does not appear to be guarding associated with this. EXTREMITIES: Unremarkable. LABORATORY DATA: Are referenced above and her CBC from today shows a white blood cell count of 4.3 with a hemoglobin of 13.8 and a normal differential. ASSESSMENT: The patient with at least 2 separate current issues. She appears to have an abscess in her abdomen, potentially associated with a ruptured appendix. This may have been related to her symptoms that she has had over the past 2 weeks. For this, I would recommend laparoscopy with possible laparoscopic appendectomy, possible abscess drainage. In regard to her colon polyp, I told her that she will almost certainly require a right hemicolectomy. It is possible that I could proceed with this at the time of this surgery depending upon the infectious findings with the abscess. The polyp and the treatment of this are certainly elective and can be postponed until after the infectious issues are resolved if I feel this is a safer option at the time of surgery. I have had an extensive conversation with the patient regarding these findings and the treatment of these various problems. I have recommended laparoscopy tomorrow morning to evaluate the abscess and the appendix. Treatment will depend upon findings and could range from simple drainage of the abscess to a laparoscopic right hemicolectomy. She understands all this and agrees to proceed. Job ID: [id number]
[2019-11-04] MEDS: Piperacillin/Tazobactam 3.375 GM in Sodium Chloride 0.9% 100 ML IVPB SCH ×4 (05:21→23:04)
[2019-11-04 05:51] LABS: #Eosinphils 0.2 thou/uL (0.0-0.7); #Lymphocytes 0.7 thou/uL (1.20-3.40); #Monocytes 0.4 thou/uL (0.11-0.59); #Neutrophils 4.7 thou/uL (1.40-6.50); %Basophils 0.5 % (0.0-1.0); %Eosinophils 2.7 % (0.0-10.0); %Lymphocytes 11.3 % (21.0-51.0); %Monocytes 6.1 % (0.0-10.0); %Neutrophils 79.4 % (42.0-75.0); Mean Corpuscular HGB CONC 34.4 g/dL (32.0-36.0); Mean Corpuscular Hemoglobin 32.4 pg (27.0-31.0); Mean Corpuscular Volume 94.1 fL (78.0-98.0); Mean Platelet Volume 6.7 fL (7.4-10.4); Platelet Count 397 thou/uL (130-400); RBC Distribution Width 10.9 % (11.5-14.5); Red Blood Cell (RBC) Count 4.32 mill/uL (4.20-5.40)
[2019-11-04 06:07] LABS: ALT (SGPT) 22 U/L (8-55); AST (SGOT) 17 U/L (5-34); Albumin 3.7 g/dL (3.5-5.0); Alkaline Phosphatase 67 U/L (40-110); Anion Gap 12 mmol/L (10-20); BUN (Urea Nitrogen) 4 mg/dL (9.8-20.1); Bilirubin, Total 0.8 mg/dL (0.2-1.2); Calc. Creatinine Clearance 79 mL/min (70-130); Calcium 8.8 mg/dL (7.8-10.44); Carbon Dioxide 28 mmol/L (22-29); Chloride 100 mmol/L (98-107); Estimated GFR-MDRD 84; Globulin 2.7 g/dL (2.4-3.5); Glucose 75 mg/dL (70-105); Potassium 3.6 mmol/L (3.5-5.1); Protein, Total 6.4 g/dL (6.0-8.3); Sodium 136 mmol/L (136-145)
--- NOTE | 2019-11-04 06:52 | PDOC.FM ---
- Subjective Subjective: NAEO. Patient sitting up on the side of her bed. States that she is not having abdominal pain, but just feels uncomfortable. She states that she has been able to walk around. She was able to talk with GI and general surgery and understands the plan for surgery later today. Patient denies any other symptoms sucha s chest pain, palpitations, fever/chills, NVD. - Objective MAR Reviewed: Yes Vital Signs & Weight: Vital Signs (12 hours) Temp Pulse Resp BP Pulse Ox 11/04/19 03:59 98.4 F 84 18 111/76 97 11/03/19 23:34 98.2 F 72 18 119/78 96 11/03/19 20:00 98.5 F 82 18 121/77 96 Weight Admit Weight 56.699 kg Weight 56.699 kg I&O: 11/02/19 11/03/19 11/04/19 06:59 06:59 06:59 Intake Total 3240 3680 2190 Balance 3240 3680 2190 Result Diagrams: 11/04/19 05:31 11/04/19 05:31 Phys Exam - Physical Examination Constitutional: NAD HEENT: moist MMs, sclera anicteric Neck: supple, full ROM Respiratory: clear to auscultation bilateral Cardiovascular: RRR Gastrointestinal: soft, no distention, positive bowel sounds mild TTP in RLQ and LLQ Musculoskeletal: no edema Neurological: non-focal, moves all 4 limbs Psychiatric: normal affect, A&O x 3 Skin: no rash, normal turgor, cap refill <2 seconds Dx/Plan (1) Hypovolemia Code(s): E86.1 - HYPOVOLEMIA Status: Acute (2) Intractable abdominal pain Code(s): R10.9 - UNSPECIFIED ABDOMINAL PAIN Status: Acute (3) Severe malnutrition Code(s): E43 - UNSPECIFIED SEVERE PROTEIN-CALORIE MALNUTRITION Status: Acute - Plan Plan: Ruptured Appendicitis w/ abscess CT previously suggest diffuse enteritis, RUQ US here shows gall bladder polpys. - GI consulted from ED, appreciate recommendations. See EGD/colonoscopy op notes for details - in brief EGD normal, colonoscopy cecal polyp, ascending colon flat polp, increased prominence and swelling of appendiceal orifice, mild- mod sigmoid colon diverticulosis, sigmoid colon polyp. Will f/u on biopsy results. CT abd performed after EGD/colonoscopy revealed evidence for ruptured appendicitis with small (3.5x2cm) periappendiceal abscess not amenable to percutaneous drainage. - Gen surg consulted, plan for laparoscopy 11/03 with possible right hemicolectomy. Will f/u post procedure. Appreciate gen surg recs. - Morphine PRN for pain COVID-19 r/o Pt meets testing criteria for testing as she is admitted for diarrhea requiring hospitalization. - COVID negative Severe malnutrition - Car Refinisher consult - severe. Ensure clear while on Clear liquid diet. Appreciate dietary recommendations/assessment Hypovolemia - Resolved CODE: FULL PPx: SCDs, protonix PCP: Dr. Catalan Case discussed with Dr. Dyer Addendum - Attending - Attending Attestation Date/Time: 11/04/19 1028 I personally evaluated the patient and discussed the management with Dr. Santacruz. I agree with the History, Examination, Assessment and Plan documented above with any addition or exceptions noted below. Patient here for diffuse abdominal pain and unspecified enteritis. Upon colonoscopy yesterday, noted some appendiceal abnormalities with repeat CT scan showing possible perforated appendicitis. This was not evident on previous CT. She has been on appropriate abx and plans for lap appy today. She has remained afebrile and normal WBC. Biopsies from colonoscopy pending to help delineate the result of her enteritis. Further mgmt pending surgical result.
[2019-11-04] MEDS: Pantoprazole 40 MG VIAL IVP SCH (08:30)
[2019-11-04] MEDS ORDERED: Bupivacaine 0.25% HCL 30 ML VIAL ONE (10:51)
[2019-11-04] MEDS ORDERED: Lidocaine 1% w/Epinephrine 1:100K 20 ML VIAL ONE (10:51)
[2019-11-04] MEDS ORDERED: Midazolam HCl 2 mg/2 ml Vial ONE (10:53)
[2019-11-04] MEDS ORDERED: Lidocaine 2% Jelly 5 ML TUBE ONE (10:53)
[2019-11-04] MEDS ORDERED: HYDROmorphone 0.5 MG/0.5 ML SYRINGE ONE ×2 (10:53→13:08)
[2019-11-04] MEDS ORDERED: Fentanyl 100 MCG/2 ML VIAL ONE ×2 (10:53→14:03)
[2019-11-04] MEDS ORDERED: Piperacillin/Tazobactam 3.375 GM VIAL ONE (11:39)
[2019-11-04] MEDS ORDERED: Dexamethasone 20 MG/5 ML VIAL ONE (12:46)
[2019-11-04] MEDS ORDERED: Ondansetron PF 4 MG/2 ML Vial ONE ×2 (12:46→13:46)
[2019-11-04] MEDS ORDERED: PHENYLEPHRINE-NS 100 MCG/ML 10 ML SYRINGE ONE (12:46)
[2019-11-04] MEDS ORDERED: Rocuronium Bromide 10 MG/ML (10ML VIAL) ONE (12:46)
[2019-11-04] MEDS ORDERED: Lidocaine 1% PF 5 ML VIAL ONE (12:46)
[2019-11-04] MEDS ORDERED: Succinylcholine Chloride 20 MG/ML 10 ml SYRINGE FS ONE (12:46)
[2019-11-04] MEDS ORDERED: PROPOFOL 200 MG/20 ML VIAL ONE (12:46)
[2019-11-04] MEDS ORDERED: SUGAMMADEX SODIUM 500 MG/5 ML VIAL ONE (12:59)
[2019-11-04] MEDS ORDERED: Pantoprazole 40 MG VIAL IVP SCH (13:15)
[2019-11-04] MEDS ORDERED: Promethazine HCl 25 MG/ML VIAL IM PRN ×2 (13:36→13:58)
[2019-11-04] MEDS ORDERED: Ondansetron HCl/PF 4 MG/2 ML Vial IVP PRN (13:36)
[2019-11-04] MEDS ORDERED: HYDROmorphone 2 MG/ML VIAL SLOW IVP PRN (13:36)
[2019-11-04] MEDS ORDERED: Promethazine HCl 25 MG/ML VIAL SLOW IVP PRN (13:36)
[2019-11-04] MEDS ORDERED: Ketorolac Tromethamine 30 MG/ML VIAL ONE (13:56)
[2019-11-04] MEDS ORDERED: Morphine 4 MG/ML VIAL SLOW IVP PRN (13:58)
[2019-11-04] MEDS ORDERED: hydrALAZINE 20 MG/ML VIAL SLOW IVP PRN (13:58)
[2019-11-04] MEDS: D5 1/2 NS w/20 mEq KCL 1,000 ML IV SCH ×2 (15:11→23:59)
[2019-11-04] MEDS: Ketorolac Tromethamine 30 MG/ML VIAL IVP SCH ×2 (17:18→23:03)
--- NOTE | 2019-11-04 20:26 | OP ---
DATE OF PROCEDURE: 11/04/2019 PREOPERATIVE DIAGNOSES: Suspected perforated appendicitis with abscess formation, colonoscopically unresectable right colon polyp. POSTOPERATIVE DIAGNOSES: Suspected perforated appendicitis with abscess formation, colonoscopically unresectable right colon polyp with finding of severe dense inflammatory change involving the terminal ileum and nonvisualization of the appendix. PROCEDURE PERFORMED: Laparoscopic converted into hand-assisted laparoscopic right hemicolectomy including resection of the distal 12 inches of small bowel. SERVICE ORDER EXPEDITER: BENEDICTO Ritchie. ANESTHESIA: General endotracheal. INDICATIONS: The patient is a 54-year-old white female, who presented with an unusual and complex history over the past almost 3 weeks of symptoms involving pain, nausea, vomiting, diarrhea with multiple laboratory studies, x-rays and antibiotics. Her CT scan from yesterday demonstrated what appeared to be an abscess in the right lower quadrant, potentially related to a perforated appendicitis. The colonoscopy from yesterday also revealed an unresectable 3 cm polyp within the right colon. This was tattooed. DESCRIPTION OF OPERATION: Informed consent was obtained. The patient was taken to the operating room, where general endotracheal anesthesia was obtained. Patient in supine position. Randall catheter was placed, abdomen was prepped with ChloraPrep and draped in sterile fashion. Local anesthetic was infiltrated using a mixture of 1% lidocaine with epinephrine and 0.25% Marcaine. A 5 mm supraumbilical incision was created, through which a Veress needle was passed into the peritoneal cavity. Pneumoperitoneum established using carbon dioxide up to pressure of 15 mmHg. A 5 mm trocar port was passed through the same incision and laparoscopic camera was passed through that port. Under direct vision, 2 additional ports were placed including a 5 mm left lower quadrant port and a 12 mm suprapubic port in line with her lower abdominal midline incision. Attention was turned to the right lower quadrant. There was no evidence of any inflammatory fluid or blood or purulence anywhere within the visible abdomen. The tattoo was noted in the mid right colon. There was a segment of small bowel densely adherent to the right lateral pelvic wall extending up towards the cecum. I began to mobilize adhesions associated with this area using a combination of blunt and sharp laparoscopic dissection. Eventually, I got to a point that I could no longer mobilize any adhesions due to the density of the adhesive and inflammatory process. I attempted to mobilize the inferior cecum by incising the white line of Toldt and dissecting inferiorly, but I ran into a wall with this as well. I therefore decided to place a GelPort for hand-assisted dissection. In continuity with her suprapubic incision, I extended the incision for a total length of 8 cm in the midline through her prior hysterectomy incision. Dissection was carried into the abdominal cavity. The Tomás wound retractor and the GelPort were placed in the usual fashion and left hand was passed into the abdominal cavity. Digitally, I was with effort, able to dissect the distal small bowel and the cecum away from the pelvic sidewall. Interestingly, I never entered an abscess cavity. There was never any purulence noted. At one point during the mobilization, I did encounter a fecalith, however. This was removed. It was difficult to discern where this came from. After I had fully mobilized the distal small bowel in the cecum, I turned my attention to the right colon. I mobilized this by incising the white line of Toldt and mobilizing the colon medially. At this point, I was able to mobilize the terminal ileum and right colon through the GelPort. Although I attempted to look, I could not definitely see the appendix at any point. The small bowel was densely inflamed, and adherent to itself. I decided to resect all of the diseased tissue along with the right colon, which included the tattoo. I took down the mesentery between the chosen segment of distal small bowel and the chosen segment of distal right colon. I then performed a double-stapled anastomosis between these two segments and passed off the specimen as the transverse stapler divided it. The staple line was buttressed with several interrupted sutures of 3-0 silk. The anastomosis was entirely viable. The bowel was dropped back down to the abdominal cavity and laparoscopy was reinstituted. I examined all dissected area and ensured meticulous hemostasis. All irrigant was aspirated. All ports and instruments were removed under direct vision. Pneumoperitoneum was carefully evacuated. A 0.25% Marcaine with epinephrine was infiltrated into each port site. Using changed instruments and gloves, the midline incision was closed by closing the fascia in 2 layers with running suture of #1 PDS. The wound was then copiously irrigated with over a liter of pressure irrigant. The remainder of the wound was closed in layers with 3-0 and 4-0 Monocryl. Dermabond was placed externally. The two 5 mm port sites were also closed with Monocryl and Dermabond. There were no complications. The patient tolerated the procedure well and was taken to the recovery room in stable condition. Job ID: [id number]
[2019-11-04] MEDS: Famotidine 20 MG TAB PO SCH (20:34)
[2019-11-04] MEDS: Famotidine/PF 20 mg/2ml Vial SLOW IVP SCH (20:34)
[2019-11-04] MEDS: Morphine 2 MG/ML SYRINGE SLOW IVP PRN (23:03)
[2019-11-05] MEDS ORDERED: HYDROcodone/Acetaminophen 7.5/325 mg Tablet PO PRN ×2 (04:45→13:31)
[2019-11-05] MEDS: Ketorolac Tromethamine 30 MG/ML VIAL IVP SCH ×4 (05:00→23:31)
[2019-11-05] MEDS: Piperacillin/Tazobactam 3.375 GM in Sodium Chloride 0.9% 100 ML IVPB SCH ×4 (05:00→23:32)
[2019-11-05 05:50] LABS: #Lymphocytes 0.9 thou/uL (1.20-3.40); #Monocytes 0.9 thou/uL (0.11-0.59); #Neutrophils 8.9 thou/uL (1.40-6.50); %Basophils 0.1 % (0.0-1.0); %Eosinophils 0.2 % (0.0-10.0); %Lymphocytes 8.5 % (21.0-51.0); %Monocytes 8.7 % (0.0-10.0); %Neutrophils 82.5 % (42.0-75.0); Hemoglobin 12.9 g/dL (12.0-16.0); Mean Corpuscular HGB CONC 34.4 g/dL (32.0-36.0); Mean Corpuscular Hemoglobin 33.2 pg (27.0-31.0); Mean Corpuscular Volume 96.5 fL (78.0-98.0); Mean Platelet Volume 6.9 fL (7.4-10.4); Platelet Count 421 thou/uL (130-400); RBC Distribution Width 10.9 % (11.5-14.5); Red Blood Cell (RBC) Count 3.88 mill/uL (4.20-5.40); White Blood Cell (WBC) Count 10.8 thou/uL (4.8-10.8)
[2019-11-05 06:12] LABS: Anion Gap 11 mmol/L (10-20); BUN (Urea Nitrogen) 4 mg/dL (9.8-20.1); Calc. Creatinine Clearance 80 mL/min (70-130); Calcium 8.3 mg/dL (7.8-10.44); Carbon Dioxide 26 mmol/L (22-29); Chloride 102 mmol/L (98-107); Estimated GFR-MDRD 85; Glucose 148 mg/dL (70-105); Potassium 3.9 mmol/L (3.5-5.1); Sodium 135 mmol/L (136-145)
--- NOTE | 2019-11-05 07:34 | PDOC.FM ---
- Subjective Subjective: NAEO. Patient up and walking around in the hallway. She is POD #1. She states that her pain has been well controlled. She endorses soreness in her abdomen but that the pain is better overall. She has not yet eaten anything. She has not passed gas. - Objective MAR Reviewed: Yes Vital Signs & Weight: Vital Signs (12 hours) Temp Pulse Resp BP Pulse Ox 11/05/19 05:09 98.2 F 79 16 131/86 98 11/04/19 23:57 97.8 F 84 16 121/78 96 11/04/19 21:09 98.5 F 94 16 102/69 96 11/04/19 20:00 96 Weight Admit Weight 56.699 kg Weight 56.699 kg I&O: 11/04/19 11/05/19 11/06/19 06:59 06:59 06:59 Intake Total 2190 2360 Output Total 1425 Balance 2190 935 Result Diagrams: 11/05/19 05:40 11/05/19 05:40 Phys Exam - Physical Examination Constitutional: NAD HEENT: PERRLA, moist MMs, sclera anicteric Neck: full ROM Respiratory: clear to auscultation bilateral Cardiovascular: RRR Gastrointestinal: soft, no distention mild TTP diffusely Musculoskeletal: no edema Neurological: non-focal, moves all 4 limbs Psychiatric: normal affect, A&O x 3 Skin: no rash, normal turgor, cap refill <2 seconds Dx/Plan (1) Hypovolemia Code(s): E86.1 - HYPOVOLEMIA Status: Acute (2) Intractable abdominal pain Code(s): R10.9 - UNSPECIFIED ABDOMINAL PAIN Status: Acute (3) Severe malnutrition Code(s): E43 - UNSPECIFIED SEVERE PROTEIN-CALORIE MALNUTRITION Status: Acute - Plan Plan: Ruptured Appendicitis w/ abscess CT previously suggest diffuse enteritis, RUQ US here shows gall bladder polpys. - GI consulted from ED, appreciate recommendations. See EGD/colonoscopy op notes for details - in brief EGD normal, colonoscopy cecal polyp, ascending colon flat polp, increased prominence and swelling of appendiceal orifice, mild- mod sigmoid colon diverticulosis, sigmoid colon polyp. Will f/u on biopsy results. CT abd performed after EGD/colonoscopy revealed evidence for ruptured appendicitis with small (3.5x2cm) periappendiceal abscess not amenable to percutaneous drainage. - Gen surg consulted, laparoscopy 11/03 with right hemicolectomy and resection of distal small bowel, POD #1. Appreciate recommendations from Gen Surg. Continue zosyn for abx coverage. - Encourage ambulation, cl liq diet for now - Monitor pain control COVID-19 r/o Pt meets testing criteria for testing as she is admitted for diarrhea requiring hospitalization. - COVID negative Severe malnutrition - Offset Plate Maker consult - severe. Ensure clear while on Clear liquid diet. Appreciate dietary recommendations/assessment Hypovolemia - Resolved CODE: FULL PPx: lovenox, pepcid Diet: cl liquid PCP: Dr. Catalan Case discussed with Dr. Dyer Addendum - Attending - Attending Attestation Date/Time: 11/05/19 1116 I personally evaluated the patient and discussed the management with Dr. Santacruz. I agree with the History, Examination, Assessment and Plan documented above with any addition or exceptions noted below. POD 1, doing well, ambulating, Has +BM. Post op mgmt per GS. Pathology pending.
[2019-11-05] MEDS: Famotidine/PF 20 mg/2ml Vial SLOW IVP SCH ×2 (08:45→19:43)
[2019-11-05] MEDS ORDERED: Enoxaparin Sodium 40 MG/0.4 ML SYRINGE SC SCH (09:00)
[2019-11-05] MEDS: D5 1/2 NS w/20 mEq KCL 1,000 ML IV SCH ×2 (09:07→22:20)
[2019-11-05] MEDS: Ondansetron PF 4 MG/2 ML Vial IVP PRN ×2 (09:08→18:15)
[2019-11-05] MEDS: Famotidine 20 MG TAB PO SCH ×2 (09:08→22:26)
--- NOTE | 2019-11-05 15:25 | PRG ---
DATE OF SERVICE: 11/05/2019 HISTORY: Ms. Roberts is a postoperative day #1 from laparoscopic hand-assisted right hemicolectomy with removal of about 12 inches of distal small bowel. I suspect this is going to be a dense inflammatory response to a chronically perforated appendix, but pathology is still pending at this time. There was no purulence noted at the time of surgery, although after everything was freed up, I did believe that I saw a fecalith. The patient states that she feels better than she did prior to surgery. She has appropriate discomfort associated with her lower abdominal incision. She has tolerated liquids, has voided, and is ambulating. PHYSICAL EXAMINATION: VITAL SIGNS: She is afebrile. Pulse 78, blood pressure 118/72. LUNGS: Clear to auscultation. ABDOMEN: Soft. Incisions are healing nicely. Bowel sounds are present and normoactive. EXTREMITIES: Unremarkable. LABORATORY DATA: Her white blood cell count is 10.8, hemoglobin is 12.9, platelet count is 421, and a left shift is present. Her chemistries reveal an essentially unremarkable metabolic panel. ASSESSMENT: The patient is doing well following laparoscopic right hemicolectomy. I will continue clear liquids for now and encourage ambulation. She appears to be doing very well. She is currently still on Zosyn, but I do not think this is indicated past today, and we will therefore discontinue it after today. A drain was not placed at the time of surgery as no purulence was ever countered. As her ileus resolved and her oral intake and bowel function normalize, I suspect she will be ready for discharge in 24 to 48 hours. Job ID: [id number]
[2019-11-05] MEDS: Morphine 2 MG/ML SYRINGE SLOW IVP PRN (22:23)
[2019-11-06] MEDS: Morphine 2 MG/ML SYRINGE SLOW IVP PRN ×4 (03:52→23:10)
[2019-11-06] MEDS: D5 1/2 NS w/20 mEq KCL 1,000 ML IV SCH ×4 (03:59→19:53)
[2019-11-06] MEDS: Ketorolac Tromethamine 30 MG/ML VIAL IVP SCH ×4 (05:18→23:10)
[2019-11-06 06:32] LABS: Anion Gap 9 mmol/L (10-20); BUN (Urea Nitrogen) 4 mg/dL (9.8-20.1); Calc. Creatinine Clearance 82 mL/min (70-130); Calcium 7.7 mg/dL (7.8-10.44); Carbon Dioxide 25 mmol/L (22-29); Chloride 106 mmol/L (98-107); Estimated GFR-MDRD 88; Glucose 120 mg/dL (70-105); Potassium 4.1 mmol/L (3.5-5.1); Sodium 136 mmol/L (136-145)
[2019-11-06 06:45] LABS: #Eosinphils 0.3 thou/uL (0.0-0.7); #Lymphocytes 1.5 thou/uL (1.20-3.40); #Monocytes 0.7 thou/uL (0.11-0.59); #Neutrophils 4.6 thou/uL (1.40-6.50); %Basophils 0.1 % (0.0-1.0); %Eosinophils 4.3 % (0.0-10.0); %Lymphocytes 20.9 % (21.0-51.0); %Monocytes 9.3 % (0.0-10.0); %Neutrophils 65.4 % (42.0-75.0); Hemoglobin 9.1 g/dL (12.0-16.0); Mean Corpuscular Hemoglobin 32.9 pg (27.0-31.0); Mean Corpuscular Volume 96.8 fL (78.0-98.0); Mean Platelet Volume 7.1 fL (7.4-10.4); Platelet Count 326 thou/uL (130-400); RBC Distribution Width 10.9 % (11.5-14.5); Red Blood Cell (RBC) Count 2.75 mill/uL (4.20-5.40); White Blood Cell (WBC) Count 7.1 thou/uL (4.8-10.8)
--- NOTE | 2019-11-06 07:07 | PDOC.FM ---
- Subjective Subjective: This morning, patient had several bloody bowel movements. On exam, patient resting comfortably in bed. She was able to ambulate yesterday. She had decreased appetite due to nausea which improved with pain medication. She reports passing flatus and having BMs. Patient pain is well controlled - required morphine overnight. Abdominal pain is minimal this morning located to incision site. She denies any fever, chills, vomiting, chest pain, palpitations. - Objective MAR Reviewed: Yes Vital Signs & Weight: Vital Signs (12 hours) Temp Pulse Resp BP BP Pulse Ox 11/06/19 03:37 98.4 F 88 16 112/74 97 11/05/19 23:40 98.3 F 79 16 116/78 97 11/05/19 21:51 99 F 81 16 128/83 96 11/05/19 20:00 97 11/05/19 19:32 98.5 F 75 16 109/69 97 Weight Admit Weight 56.699 kg Weight 56.699 kg I&O: 11/05/19 11/06/19 11/07/19 06:59 06:59 06:59 Intake Total 2360 4105 Output Total 1425 Balance 935 4105 Result Diagrams: 11/06/19 05:40 11/06/19 05:40 Phys Exam - Physical Examination Constitutional: NAD HEENT: moist MMs, sclera anicteric Neck: supple, full ROM Respiratory: clear to auscultation bilateral Cardiovascular: RRR Gastrointestinal: soft, no distention, positive bowel sounds mild TTP, incision lower abdomen Musculoskeletal: no edema Neurological: non-focal, moves all 4 limbs Psychiatric: normal affect, A&O x 3 Skin: no rash, normal turgor, cap refill <2 seconds Dx/Plan (1) Hypovolemia Code(s): E86.1 - HYPOVOLEMIA Status: Acute (2) Intractable abdominal pain Code(s): R10.9 - UNSPECIFIED ABDOMINAL PAIN Status: Acute (3) Severe malnutrition Code(s): E43 - UNSPECIFIED SEVERE PROTEIN-CALORIE MALNUTRITION Status: Acute - Plan Plan: Ruptured Appendicitis w/ abscess CT previously suggest diffuse enteritis, RUQ US here shows gall bladder polpys. - GI consulted from ED, appreciate recommendations. See EGD/colonoscopy op notes for details - in brief EGD normal, colonoscopy cecal polyp, ascending colon flat polp, increased prominence and swelling of appendiceal orifice, mild- mod sigmoid colon diverticulosis, sigmoid colon polyp. Biopsies showing tubular adenoma and tubulovillous. CT abd performed after EGD/colonoscopy revealed evidence for ruptured appendicitis with small (3.5x2cm) periappendiceal abscess not amenable to percutaneous drainage. - Gen surg consulted, laparoscopy 11/03 with right hemicolectomy and resection of distal small bowel, POD #2. Appreciate recommendations from Gen Surg. Zosyn discontinued. - Cl liquid diet for now; patient on bed rest due to recent bloody BMs - Monitor pain control COVID-19 r/o Pt meets testing criteria for testing as she is admitted for diarrhea requiring hospitalization. - COVID negative CODE: FULL PPx: lovenox, pepcid Diet: cl liquid PCP: Dr. Catalan Case discussed with Dr. Dyer Addendum - Attending - Attending Attestation Date/Time: 11/06/19 1010 I personally evaluated the patient and discussed the management with Dr. Santacruz. I agree with the History, Examination, Assessment and Plan documented above with any addition or exceptions noted below. POD2, having some increased pain from too much ambulation yesterday. Having some rectal bleeding, will trend H/H. Surgery aware. Postsurgical mgmt per their recs.
[2019-11-06] MEDS: Famotidine 20 MG TAB PO SCH ×2 (08:27→19:54)
[2019-11-06] MEDS: Famotidine/PF 20 mg/2ml Vial SLOW IVP SCH ×2 (08:28→19:50)
[2019-11-06 12:11] LABS: #Eosinphils 0.4 thou/uL (0.0-0.7); #Lymphocytes 2.3 thou/uL (1.20-3.40); #Monocytes 0.7 thou/uL (0.11-0.59); #Neutrophils 4.8 thou/uL (1.40-6.50); %Basophils 0.4 % (0.0-1.0); %Eosinophils 4.8 % (0.0-10.0); %Lymphocytes 28.2 % (21.0-51.0); %Monocytes 8.3 % (0.0-10.0); %Neutrophils 58.4 % (42.0-75.0); Hemoglobin 9.9 g/dL (12.0-16.0); Mean Corpuscular HGB CONC 33.9 g/dL (32.0-36.0); Mean Corpuscular Hemoglobin 32.8 pg (27.0-31.0); Mean Corpuscular Volume 96.7 fL (78.0-98.0); Mean Platelet Volume 6.6 fL (7.4-10.4); Platelet Count 354 thou/uL (130-400); RBC Distribution Width 10.9 % (11.5-14.5); Red Blood Cell (RBC) Count 3.02 mill/uL (4.20-5.40); White Blood Cell (WBC) Count 8.1 thou/uL (4.8-10.8)
--- NOTE | 2019-11-06 14:39 | PRG ---
DATE OF SERVICE: 11/06/2019 SUBJECTIVE: Ms. Roberts is postoperative day #2 from laparoscopic-assisted right hemicolectomy and distal small-bowel resection. Overnight, she developed multiple loose bloody bowel movements. Her Lovenox was discontinued and she was placed at bedrest. Her hemoglobin had dropped from 12.9 yesterday morning down to 9.1 this morning. Following a brief period of observation, her hemoglobin this afternoon is 9.9. She tolerated clear liquids uneventfully. Yesterday, she did not vomit. She notes appropriate discomfort. Her pathology reveals evidence of perforated appendicitis. The right colon polyps were removed appropriately with the right colectomy and were benign. OBJECTIVE: VITAL SIGNS: She is afebrile. Pulse is 80 and blood pressure 124/86. LUNGS: Clear to auscultation. ABDOMEN: Normoactive bowel sounds and soft. Incisions are healing nicely with minimal tenderness. LABORATORY DATA: Laboratory studies were reviewed above. ASSESSMENT AND PLAN: The patient is doing well following laparoscopic ileocolectomy. She is progressing appropriately at this point. I will advance her to a full liquid diet and encourage continued ambulation. If she remains stable for the rest today, then I would hope that she would be ready for discharge tomorrow. Job ID: [id number]
[2019-11-07] MEDS: Ketorolac Tromethamine 30 MG/ML VIAL IVP SCH (05:36)
[2019-11-07] MEDS: Morphine 2 MG/ML SYRINGE SLOW IVP PRN (05:58)
[2019-11-07 06:12] LABS: #Basophils 0.1 thou/uL (0.0-0.2); #Eosinphils 0.3 thou/uL (0.0-0.7); #Lymphocytes 2.3 thou/uL (1.20-3.40); #Monocytes 0.4 thou/uL (0.11-0.59); %Eosinophils 6.6 % (0.0-10.0); %Lymphocytes 44.4 % (21.0-51.0); %Monocytes 8.3 % (0.0-10.0); %Neutrophils 39.7 % (42.0-75.0); Hemoglobin 8.5 g/dL (12.0-16.0); Mean Corpuscular HGB CONC 34.8 g/dL (32.0-36.0); Mean Corpuscular Hemoglobin 33.3 pg (27.0-31.0); Mean Corpuscular Volume 95.6 fL (78.0-98.0); Mean Platelet Volume 7.2 fL (7.4-10.4); Platelet Count 319 thou/uL (130-400); RBC Distribution Width 10.9 % (11.5-14.5); Red Blood Cell (RBC) Count 2.55 mill/uL (4.20-5.40); White Blood Cell (WBC) Count 5.1 thou/uL (4.8-10.8)
--- NOTE | 2019-11-07 07:06 | PDOC.FM ---
- Subjective Subjective: NAEO. Patient states that she has not had a bloody BM since yesterday. She has been tolerating PO well - clear and full liquids with no issue. She states her stools have been normal so far overnight and then morning. She denies any fever , chills, NVD, abd pain, chest pain, palpitations, lightheaded or dizziness. She states she has been ambulating well. - Objective MAR Reviewed: Yes Vital Signs & Weight: Vital Signs (12 hours) Temp Pulse Resp BP Pulse Ox 11/07/19 04:10 98.6 F 82 18 102/68 98 11/07/19 00:11 98.3 F 85 18 103/67 98 11/06/19 20:43 98.7 F 89 19 120/79 99 11/06/19 20:00 99 Weight Admit Weight 56.699 kg Weight 56.699 kg I&O: 11/06/19 11/07/19 11/08/19 06:59 06:59 06:59 Intake Total 4105 3870 Balance 4105 3870 Result Diagrams: 11/07/19 05:35 11/06/19 05:40 Phys Exam - Physical Examination Constitutional: NAD HEENT: moist MMs, sclera anicteric Neck: supple, full ROM Respiratory: clear to auscultation bilateral Cardiovascular: RRR Gastrointestinal: soft, no distention, positive bowel sounds appropriately TTP Neurological: non-focal, moves all 4 limbs Psychiatric: normal affect, A&O x 3 Skin: no rash, normal turgor, cap refill <2 seconds Dx/Plan (1) Hypovolemia Code(s): E86.1 - HYPOVOLEMIA Status: Acute (2) Intractable abdominal pain Code(s): R10.9 - UNSPECIFIED ABDOMINAL PAIN Status: Acute (3) Severe malnutrition Code(s): E43 - UNSPECIFIED SEVERE PROTEIN-CALORIE MALNUTRITION Status: Acute - Plan Plan: Ruptured Appendicitis w/ abscess s/p right hemicolectomy CT previously suggest diffuse enteritis, RUQ US here shows gall bladder polpys. - GI consulted from ED, appreciate recommendations. See EGD/colonoscopy op notes for details - in brief EGD normal, colonoscopy cecal polyp, ascending colon flat polp, increased prominence and swelling of appendiceal orifice, mild- mod sigmoid colon diverticulosis, sigmoid colon polyp. Biopsies showing tubular adenoma and tubulovillous. CT abd performed after EGD/colonoscopy revealed evidence for ruptured appendicitis with small (3.5x2cm) periappendiceal abscess not amenable to percutaneous drainage. - Gen surg consulted, laparoscopy 4/ with right hemicolectomy and resection of distal small bowel, POD #3. Path showing ruptured appendicitis. Appreciate recommendations from Gen Surg. Zosyn discontinued. - Advanced to full liquid diet, encourage ambulation - Hgb dropped from 9.9 -> 8.5. Will recheck CBC at 12 today. - Monitor pain control COVID-19 r/o Pt meets testing criteria for testing as she is admitted for diarrhea requiring hospitalization. - COVID negative CODE: FULL PPx: pepcid, SCDs Diet: full liquid PCP: Dr. Catalan Dispo: if patient's H/H stable, will likely be able to be discharged. Case discussed with Dr. Dyer Addendum - Attending - Attending Attestation Date/Time: 11/07/19 2853 I personally evaluated the patient and discussed the management with Dr. Santacruz. I agree with the History, Examination, Assessment and Plan documented above with any addition or exceptions noted below. Patient feeling well. Ambulating without issue. Awaiting final GenSur recs but hopefully home today or tomorrow.
[2019-11-07] MEDS: Famotidine/PF 20 mg/2ml Vial SLOW IVP SCH (08:02)
[2019-11-07] MEDS: Famotidine 20 MG TAB PO SCH (08:02)
[2019-11-07 08:15] VITALS: BP 112/73; TEMP 98.3
[2019-11-07] MEDS ORDERED: Ibuprofen 600 MG TAB PO PRN (09:46)
[2019-11-07 12:17] LABS: #Eosinphils 0.2 thou/uL (0.0-0.7); #Lymphocytes 1.3 thou/uL (1.20-3.40); #Monocytes 0.3 thou/uL (0.11-0.59); #Neutrophils 2.4 thou/uL (1.40-6.50); %Basophils 0.4 % (0.0-1.0); %Lymphocytes 31.6 % (21.0-51.0); %Monocytes 7.1 % (0.0-10.0); %Neutrophils 55.9 % (42.0-75.0); Hemoglobin 8.6 g/dL (12.0-16.0); Mean Corpuscular HGB CONC 33.8 g/dL (32.0-36.0); Mean Corpuscular Hemoglobin 32.7 pg (27.0-31.0); Mean Corpuscular Volume 96.5 fL (78.0-98.0); Mean Platelet Volume 7.1 fL (7.4-10.4); Platelet Count 316 thou/uL (130-400); RBC Distribution Width 10.9 % (11.5-14.5); Red Blood Cell (RBC) Count 2.65 mill/uL (4.20-5.40); White Blood Cell (WBC) Count 4.2 thou/uL (4.8-10.8)
--- NOTE | 2019-11-08 09:48 | EKG ---
Test Reason : Blood Pressure : / mmHG Vent. Rate : 099 BPM Atrial Rate : 099 BPM P-R Int : 150 ms QRS Dur : 076 ms QT Int : 346 ms P-R-T Axes : 056 063 032 degrees QTc Int : 444 ms Normal sinus rhythm Possible Left atrial enlargement Borderline ECG Confirmed by SORAIDA FUENTES DO ([id number]), copy editor ANANYA MCWILLIAMS ([id number]) on 11/08/2019 9:47:49 AM Referred By: Confirmed By:SORAIDA FUENTES DO
--- NOTE | 2019-11-10 10:26 | DIS ---
DATE OF ADMISSION: 10/31/2019 DATE OF DISCHARGE: 11/07/2019 RESIDENT: Christi Santacruz MD. ADMITTING ATTENDING: Farhad Leon MD. DISCHARGE ATTENDING: Pepe Dyer MD. CONSULTS: 1. Gastroenterology, Dr. Olea. 2. General Surgery, Dr. Raleigh Escalona. PROCEDURES: 1. On 10/31/2019, abdominal ultrasound showing unremarkable right upper quadrant ultrasound. 2. On 11/03/2019, EGD with biopsy, colonoscopy with biopsy and polypectomy, and submucosal injection by Dr. Solorzano. 3. On 11/03/2019, abdomen and pelvis CT showing evidence for ruptured appendicitis with small periappendiceal abscess not amenable to percutaneous drainage. 4. On 11/04/2019, laparoscopic right hemicolectomy with resection of the distal small bowel by Dr. Escalona. DISCHARGE MEDICATIONS: 1. Motrin 600 mg oral every 8 hours as needed. 2. Tramadol. Prescriptions were given to the patient. DISCONTINUED MEDICATIONS: None. PRIMARY DIAGNOSIS: Ruptured appendicitis with abscess. SECONDARY DIAGNOSES: None. HISTORY OF PRESENT ILLNESS/HOSPITAL COURSE: This is a 54-year-old previously healthy female who presented to our hospital with a 16-day history of severe abdominal pain associated with nausea, vomiting, and diarrhea. She stated that the pain was achy and epigastric and severe with no radiation. The patient was hospitalized earlier in the week in [facility] and had a workup done with negative stool studies and imaging. Her original CT reportedly showed diffuse enteritis. In the ER here, the patient was given Phenergan, Zofran, morphine, and normal saline. The patient was admitted to the medical floor for further workup. The patient was started on Protonix and GI was consulted. GI performed a colonoscopy with the above findings, which prompted an additional CT of her abdomen. This subsequent CT revealed ruptured appendicitis. General Surgery was consulted, and the patient underwent laparoscopic surgery with right hemicolectomy and resection of the distal small bowel. The patient tolerated the procedure very well and was able to advance her diet. She was ambulating and having regular bowel movement prior to discharge. Of note, the patient's biopsies from her colonoscopy revealed a tubular adenoma as well as a tubulovillous adenoma. The patient's biopsy from her laparoscopic procedure showed evidence of ruptured appendicitis. Of note, the patient was a COVID-19 rule-out as she was having diarrhea and GI symptoms. Her COVID results were negative. DISPOSITION: Stable. DISCHARGE INSTRUCTIONS: 1. Location: Home. 2. Diet: Regular. 3. Activity: No strenuous exercise for 6 weeks and no heavy lifting x4 weeks. FOLLOWUP: Follow up with PCP, Dr. Catalan, within 7 days and follow up with General Surgery, Dr. Escalona, within 14 days. Job ID: [id number] [id number]
== END 2019-11-07 15:10 | disposition home or self-care (01) | DRG 329 ==
LOC: ERS 09:11 → OBSVTOIN 13:00 → T4-A 13:00 → MERGE 13:00 → SURG B 11-04 15:07
PROVIDERS: ADMIT Family Medicine; ATTEND Family Medicine
PROC: 0DB98ZX Excision of Duodenum, Via Natural or Artificial Opening Endoscopic, Diagnostic (ICD-10-PCS; 2019-11-03)
PROC: 0DBC8ZX Excision of Ileocecal Valve, Via Natural or Artificial Opening Endoscopic, Diagnostic (ICD-10-PCS; 2019-11-03)
PROC: 0DBK8ZX Excision of Ascending Colon, Via Natural or Artificial Opening Endoscopic, Diagnostic (ICD-10-PCS; 2019-11-03)
PROC: 0DBE8ZX Excision of Large Intestine, Via Natural or Artificial Opening Endoscopic, Diagnostic (ICD-10-PCS; 2019-11-03)
PROC: 0DBN8ZX Excision of Sigmoid Colon, Via Natural or Artificial Opening Endoscopic, Diagnostic (ICD-10-PCS; 2019-11-03)
PROC: 0DBH8ZX Excision of Cecum, Via Natural or Artificial Opening Endoscopic, Diagnostic (ICD-10-PCS; 2019-11-03)
PROC: 0DTF0ZZ Resection of Right Large Intestine, Open Approach (ICD-10-PCS; principal; 2019-11-04)
PROC: 0DB80ZZ Excision of Small Intestine, Open Approach (ICD-10-PCS; 2019-11-04)
PROC: 0WJG4ZZ Inspection of Peritoneal Cavity, Percutaneous Endoscopic Approach (ICD-10-PCS; 2019-11-04)
DX: K35.33 Acute appendicitis with perforation, localized peritonitis, and gangrene, with abscess (principal); E43 Unspecified severe protein-calorie malnutrition; E86.1 Hypovolemia; K52.9 Noninfective gastroenteritis and colitis, unspecified; K57.30 Diverticulosis of large intestine without perforation or abscess without bleeding; K64.4 Residual hemorrhoidal skin tags; D12.0 Benign neoplasm of cecum; K82.4 Cholesterolosis of gallbladder; K64.8 Other hemorrhoids; Z90.710 Acquired absence of both cervix and uterus; Z68.22 Body mass index [BMI] 22.0-22.9, adult; Z11.59 Encounter for screening for other viral diseases
CPT/HCPCS: 36415; 71045; 74177; 76705; 80048; 80053; 81003; 83605; 83690; 84484; 85025; 87040; 87635; 88305; 88307; 93005; 96361; 96374; 96375; 96376; C9113; J1100; J1170; J1650; J1885; J2001; J2250; J2270; J2405; J2543; J2550; J2704; J3010; J3480; J3490; Q9967; S0020; S0028; U0003